=== PATIENT | male | born 1985 | race Caucasian/White ===

== ENCOUNTER 2016-10-11 16:26 | Inpatient (IN) | payer OTHER ==
[~2016-10-11] VITALS: Ht 185.4 cm; Wt 94.8 kg
--- NOTE | ~2016-10-11 | PN ---
Unit #: [id number] #: [id number] Patient: FATUMA PERALTA [id number] [facility] [address] [place] [address] [id number] MR#: [id number] NAME: FATUMA PERALTA. ROOM: P256 Age: 31 Sex: M Admission Date: 10/12/2016 : 1985 Attending Physician: Monica Crystal M.D. Admitting Physician: Monica Crystal M.D. Primary Care Physician: Primary Care Physician Debbie TATUM PROGRESS NOTES DATE 10/16/2016 DISCUSSION Mr. Peralta is a 31-year-old white male who was seen today and chart was reviewed and case was discussed with the staff. He has been anxious, withdrawn and rather seclusive to himself. Meanwhile, he has been cooperative with treatment recommendations and has been taking medications and tolerating them fairly well with no reported side effects. MENTAL STATUS EXAMINATION Young white male who was casually dressed with fair personal hygiene and appears to be in no acute distress or discomfort. He was awake and alert with intact orientation. His mood was anxious with congruent affect. He denies any suicidal or homicidal ideation. His insight and judgement remains slightly impaired. TREATMENT PLAN 1. Will continue on his current treatment protocol. Will monitor his response and make further adjustments as needed. 2. Will continue to follow up. Dictated by... Vicki Ly/guanaco TD: 10/16/2016 22:33 JOB #: [id number] Unit #: [id number] #: [id number] Patient: FATUMA PERALTA PROGRESS NOTES Page 1 of 1 X Monica Crystal MD PROGRESS NOTE
--- NOTE | ~2016-10-11 | PN ---
Unit #: [id number] #: [id number] Patient: FATUMA PERALTA [id number] [facility] [address] [place] [address] [id number] MR#: [id number] NAME: FATUMA PERALTA. ROOM: P256 Age: 31 Sex: M Admission Date: 10/12/2016 : 1985 Attending Physician: Monica Crystal M.D. Admitting Physician: Monica Crystal M.D. Primary Care Physician: Primary Care Physician Debbie TATUM PROGRESS NOTES DATE OF SERVICE: 10/15/2016 SUBJECTIVE Mr. Peralta is a 31-year-old white male, who was seen today and chart was reviewed and case was discussed with the staff. He has been anxious, withdrawn, and rather seclusive to himself, though he reports feeling better with his depressive symptoms and that he has the discharge plan of his own that he would like to work with [employer] tomorrow. MENTAL STATUS EXAMINATION Young white male, who was casually dressed with fair personal hygiene, appears to be in no acute distress or discomfort. He was awake and alert on interaction with intact orientation. His mood was anxious with a congruent affect. He denies any suicidal or homicidal ideations. His insight and judgment remain slightly impaired. TREATMENT PLAN 1. We will continue his current medications and treatment protocol. We will monitor his response and make further adjustments as needed. 2. We will continue to follow up. Dictated by... Vicki Ly/madi TD: 10/17/2016 03:01 JOB #: [id number] [facility] PROGRESS NOTES Page 1 of 1 X Monica Crystal MD PROGRESS NOTE
--- NOTE | ~2016-10-11 | HP ---
Unit #: [id number] #: [id number] Patient: AASHISH DE LEON [id number] [place] [address] [id number] MR#: [id number] NAME: AASHISH DE LEON. ROOM: P256 Age: 31 Sex: M Admission Date: 10/12/2016 : 1985 Attending Physician: Monica Crystal M.D. Admitting Physician: Monica Crystal M.D. Primary Care Physician: Primary Care Physician No HISTORY AND PHYSICAL HISTORY OF PRESENT ILLNESS Aashish is a 31 year old admitted to [address] [place] [address] with depression and verbalizing wanting to hurt himself. PAST MEDICAL HISTORY Nothing significant. PAST SURGICAL HISTORY Nothing reported. ALLERGIES No known drug allergies. SOCIAL HISTORY He does not smoke. Drinks alcohol and uses marijuana socially. FAMILY HISTORY Medically noncontributory. REVIEW OF SYSTEMS CONSTITUTIONAL: No fever or chills. HEENT: Denies any sore throat, ear pain or runny nose. CARDIOVASCULAR: Denies chest pain, irregular heart rhythm or palpitations. CHEST: Denies shortness of breath or cough. No hemoptysis. GASTROINTESTINAL: Denies nausea, vomiting, diarrhea or chronic constipation. ENDOCRINE: Denies history of increased thirst or urination. No recent significant weight loss or gain. GENITOURINARY: Denies dysuria, frequency, or hematuria. SKIN: Denies any rashes. HEMATOLOGIC: Denies history of increased bleeding or bruising. MUSCULOSKELETAL: Denies any hot, swollen joints. No generalized muscle pain. NEUROLOGIC: Denies problems with vision or speech. No frequent, severe headaches. No numbness, tingling or weakness in any extremities. Denies loss of bladder or bowel control. CURRENT MEDICATIONS 1. Milk of Magnesia p.r.n. 2. Maalox p.r.n. 3. Tylenol p.r.n. 4. Wellbutrin XL 150 mg q.a.m. Unit #: [id number] #: [id number] Patient: AASHISH DE LEON PHYSICAL EXAMINATION GENERAL: Alert, well-nourished, in no apparent distress. VITAL SIGNS: Blood pressure 134/98, respirations 16, temperature 98.6. WEIGHT: 209. HEIGHT: 6 feet 1 inch. SKIN: Warm and dry without rash. He has multiple blisters on the bottom of his feet. There is no increased redness, swelling, heat or pus noted. HEENT: Normocephalic. TMs not viewed. Oral and nasal passages clear. Conjunctivae clear. PERRLA. EOMs intact. NECK: Supple without lymphadenopathy or thyromegaly. HEART: Regular rate and rhythm without murmur. LUNGS: Clear. ABDOMEN: Soft, nontender. : Not done. EXTREMITIES: No evidence of cyanosis, clubbing or edema. Moves all without focal deficit. NEUROLOGICAL: Grossly within normal limits. Cranial Nerves: II: Visual grove are intact. III, IV AND : Extraocular movements are intact. Pupils are equal, round and reactive to light. V: Facial sensation is grossly normal. VII: Facial movements and expression are normal. VIII: Auditory acuity grossly intact. IX, X: Uvula is midline. Phonation is normal. XI: Patient shrugs shoulders and turns head normally. XII: Tongue protrudes in the midline. Sensory and Motor Function: Sensory and motor sensation is grossly normal. Motor: moves all extremities well. Coordination: Gait is normal. Deep Tendon Reflexes: Intact. IMPRESSION 1. Psychiatric admission. 2. Multiple blisters on his feet. RECOMMENDATIONS PSYCHIATRIC: Per psychiatrist. MEDICAL: 1. See no contraindication to participate in facility's activities. 2. Keep the areas clean. No further Rx. MEDICAL PROGNOSIS Good. MEDICAL CONDITION Stable. Dictated by... Sylvia Vizcaino P.A.-C. for Vicki Ames/guanaco TD: 10/12/2016 20:14 JOB #: [id number] Unit #: [id number] #: [id number] Patient: AASHISH DE LEON HISTORY AND PHYSICAL Page 1 of 1 X Sylvia Vizcaino HISTORY AND PHYSICAL
--- NOTE | ~2016-10-11 | CO ---
Unit #: [id number] #: [id number] Patient: FATUMA DE LEON [id number] [place] [address] [id number] MR#: [id number] NAME: FATUMA DE LEON. ROOM: P256 Age: 31 Sex: M Admission Date: 10/12/2016 : 1985 Attending Physician: Monica Crystal M.D. Consultation Date: 10/12/2016 CONSULTATION REPORT IRA Zendejas is a 31-year-old admitted with blisters on his feet. He was seen for his admission H and P on 10/12/2016. These areas were examined and detailed in that document. Please see H and P dated 10/12/2016. Dictated by... Sylvia Vizcaino P.A.-C. for Vicki Ames/madi TD: 10/12/2016 19:47 JOB #: [id number] CONSULTATION REPORT Page 1 of 1 X Sylvia Vizcaino CONSULTATION REPORT
--- NOTE | ~2016-10-11 | PN ---
Unit #: [id number] #: [id number] Patient: FATUMA PERALTA [id number] [facility] [address] [place] [address] [id number] MR#: [id number] NAME: FATUMA PERALTA. ROOM: P256 Age: 31 Sex: M Admission Date: 10/12/2016 : 1985 Attending Physician: Monica Crystal M.D. Admitting Physician: Monica Crystal M.D. Primary Care Physician: Primary Care Physician Debbie NIÑO NOTES DATE OF SERVICE 10/13/2016 DISCUSSION Mr. Peralta is a 31-year-old white male who was seen today. Chart was reviewed and case was discussed with the staff. He has been anxious, withdrawn, and rather seclusive to himself. Meanwhile, he has been cooperative with treatment recommendations and has been taking the medications and tolerating them fairly well with no reported side effects. MENTAL STATUS EXAMINATION Young white male who is casually dressed with fair personal hygiene, appears to be in no acute distress or discomfort. The patient was awake and alert on interaction with intact orientation. His mood is anxious and depressed with congruent affect. His speech is slow and restricted in content. He denies any suicidal or homicidal ideations and also denies any auditory or visual hallucinations. His insight and judgment remain slightly impaired. TREATMENT PLAN 1. We will continue him on his current medications and treatment protocol. We will monitor his response to medications and make further adjustments as needed. 2. We will continue to follow up. Dictated by... Vicki Ly/aaron TD: 10/13/2016 18:21 JOB #: [id number] Unit #: [id number] #: [id number] Patient: FATUMA PERALTA PROGRESS NOTES Page 1 of 1 X Monica Crystal MD PROGRESS NOTE
--- NOTE | ~2016-10-11 | PN ---
Unit #: [id number] #: [id number] Patient: FATUMA PERALTA [id number] [facility] [address] [place] [address] [id number] MR#: [id number] NAME: FATUMA PERALTA. ROOM: P256 Age: 31 Sex: M Admission Date: 10/12/2016 : 1985 Attending Physician: Monica Crystal M.D. Admitting Physician: Monica Crystal M.D. Primary Care Physician: Primary Care Physician Debbie TATUM PROGRESS NOTES DATE 10/17/2016 DISCUSSION Mr. Peralta is a 31-year-old white male who was seen today and chart was reviewed and case was discussed with the staff. He has been anxious, withdrawn and seclusive to himself. Meanwhile, he has been cooperative with treatment recommendations and has been taking medications and tolerating them fairly well. MENTAL STATUS EXAMINATION Young white male who was casually dressed with fair personal hygiene and appears to be in no acute distress or discomfort. He was awake and alert with intact orientation. His mood was anxious with congruent affect. He denies any suicidal or homicidal ideation. His insight and judgement remains slightly impaired. TREATMENT PLAN 1. Will continue on his current treatment protocol. Will monitor his response to the medications and make further adjustments as needed. 2. Will continue to follow up. Dictated by... Vicki Ly/guanaco TD: 10/17/2016 16:44 JOB #: [id number] Unit #: [id number] #: [id number] Patient: FATUMA PERALTA PROGRESS NOTES Page 1 of 1 X Monica Crystal MD PROGRESS NOTE
--- NOTE | ~2016-10-11 | PA ---
Unit #: [id number] #: [id number] Patient: FATUMA PERALTA [id number] [facility] [address] [place] [address] [id number] I MR#: [id number] NAME: FATUMA PERALTA. ROOM: P256 Age: 31 Sex: M Admission Date: 10/12/2016 : 1985 Date of Assessment: 10/12/2016 Attending Physician: Monica Crystal M.D. Admitting Physician: Monica Crystal M.D. Primary Care Physician: Primary Care Physician No PSYCHIATRIC ASSESSMENT DATE OF SERVICE 10/12/2016. IDENTIFYING DATA Mr. Peralta is a 31-year-old, single, white male, who is a resident of [place], [place] and was self-referred to the hospital on a voluntary basis as he presented to the [facility] Room. CHIEF COMPLAINT "Depression and suicidal thoughts." HISTORY OF PRESENT ILLNESS Mr. Peralta is a 31-year-old white male with a history of mood disorder, who apparently took himself to the hospital emergency room reporting that he has been having thoughts of depression and suicide and does not know what to do with himself because his life is not going as planned and further explained that he is 31 years old and has not accomplished anything and does not have any life skills and he does not know how to do the simple things that most people know how to do such as get a bank account and maintain employment and drive car and stated he does not have a good relationship with his mother and is currently homeless, although in 08/2016, he states that 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 Therefore, he hitchhiked to [place] against the will of his mother and family while things did not work out as planned. He contends that he is a failure and that it was somewhat of a suicide admission to hitchhike to [place] as he did not know if someone would kill him or what exactly would happen to him and stated that he really did not care further and does report increasing depression, anxiety, irritability, restlessness, feelings of hopelessness and helplessness, and suicidal ideations and as such, recommendation for inpatient level of care for safety and stabilization was made and patient was stepped up to the inpatient unit. SUBSTANCE ABUSE HISTORY The patient reports occasional experimentation with alcohol and cannabis, but denies any regular substance abuse issues. PAST PSYCHIATRIC HISTORY Unit #: [id number] #: [id number] Patient: FATUMA PERALTA The patient has had history of multiple inpatient psychiatric hospitalizations including being in [place], [place] and at [facility] and [facility] and review of the medical records indicate that currently he is not active in any treatment program, is not seeing a psychiatrist, and is not taking any psychotropic medications. PAST MEDICAL HISTORY The patient's medical history is insignificant. ALLERGIES No known medication allergies. PERSONAL AND SOCIAL HISTORY A 31-year-old white male, who reports that he is single, unemployed, and essentially homeless and has poor social support system. MENTAL STATUS EXAMINATION Young white male, who was casually dressed with fair personal hygiene, appears to be in no acute distress or discomfort. He was awake and alert on interaction with intact orientation to time, place, and person. His mood was anxious and depressed with a congruent affect. His speech was slow and goal directed. He reports having suicidal ideations, but denies any homicidal ideations, and also denies any auditory or visual hallucinations. His insight and judgment remain significantly impaired. DIAGNOSTIC IMPRESSION Psychiatric: Major depressive disorder, recurrent, moderate, without psychotic features. Medical: None. Stressors: Moderate psychosocial stressors. TREATMENT PLAN 1. The patient has presented with a history of mood disorder, and has been decompensating and will need inpatient hospitalization for safety and stabilization. We will start him back on his home medications. We will also recommend a trial of antidepressant therapy. 2. Supportive therapy was provided to the patient. 3. Safe, structured, and nourishing environment will be provided. ESTIMATED LENGTH OF STAY 5 to 7 days. ABILITY TO HELP SELF Limited. WILLINGNESS TO HELP SELF The patient appears to be willing to help self. STRENGTHS 1. Communicative. 2. Cooperative. PROBLEMS 1. Chronic dysphoric symptoms. 2. Poor social support system. Unit #: [id number] #: [id number] Patient: FATUMA PERALTA DISCHARGE CRITERIA This will be contingent upon the patient's ability to show resolution of his depression and anxiety and his ability to stay safe to himself, particularly after discharge from the hospital. Dictated by... Vicki Ly/madi TD: 10/13/2016 01:16 JOB #: [id number] PSYCHIATRIC ASSESSMENT Page 1 of 1 X Monica Crystal MD X PSYCHIATRIC ASSESSMENT
--- NOTE | ~2016-10-11 | PN ---
Unit #: [id number] #: [id number] Patient: FATUMA PERALTA [id number] [facility] [address] [place] [address] [id number] MR#: [id number] NAME: FATUMA PERALTA. ROOM: P256 Age: 31 Sex: M Admission Date: 10/12/2016 : 1985 Attending Physician: Monica Crystal M.D. Admitting Physician: Monica Crystal M.D. Primary Care Physician: Primary Care Physician Dbebie NIÑO NOTES DATE October 14, 2016 DISCUSSION Mr. Peralta is a 31-year-old white male, who was seen today and chart was reviewed and the case was discussed with the staff. He has been anxious, withdrawn, and rather seclusive to himself. Meanwhile, he has been cooperative with the treatment recommendations and he has been taking the medications and tolerating them fairly well with no reported side effects. MENTAL STATUS EXAMINATION Young white male, who was casually dressed with fair personal hygiene and appears to be in no acute distress or discomfort. He was awake and alert with intact orientation. His mood was anxious with a congruent affect. He denies any suicidal or homicidal ideations. His insight and judgment remain slightly impaired. TREATMENT PLAN 1. We will continue him on his current medications and treatment protocol, and will monitor his response to the medications, and make further adjustments as needed. 2. We will continue to followup. Dictated by... Vicki Ly/amarjit TD: 10/16/2016 11:25 JOB #: [id number] Unit #: [id number] #: [id number] Patient: FATUMA PERALTA RC PROGRESS NOTES Page 1 of 1 X Monica Crystal MD PROGRESS NOTE
== END 2016-10-18 10:00 | DRG 885 ==
LOC: P2L 10-12 01:05
DX: F33.1 Major depressive disorder, recurrent, moderate (principal); S90.821A Blister (nonthermal), right foot, initial encounter; S90.822A Blister (nonthermal), left foot, initial encounter